=== PATIENT | male | born 1975 ===

== ENCOUNTER 2020-07-19 15:30 | Inpatient (IN) | payer SELFPAY ==
[2020-07-19] MEDS ORDERED: SODIUM CHLORIDE 0.9% 1000 ML 1,000 ML IV ONE ×3 (16:03→17:13)
[2020-07-19] MEDS ORDERED: cefTRIAXone/NS 2 GM/100 ML 2 GM/100 ML BAG IV ONE (16:10)
[2020-07-19] MEDS ORDERED: dexAMETHasone 4 MG/ML VIAL IV ONE (16:10)
[2020-07-19] MEDS ORDERED: AZITHROMYCIN 500 MG in SODIUM CHLORIDE 0.9% 250ML 250 ML IV ONE (16:10)
--- NOTE | 2020-07-19 16:10 | Emergency Department Report ---
ED Shortness of Breath HPI - General Chief Complaint: Dyspnea/Respdistress Stated Complaint: CHINMAY/HBS Time Seen by Provider: 07/19/20 16:01 Source: patient Mode of arrival: Ambulatory Limitations: Language Barrier - History of Present Illness Initial Comments: Patient is a 44-year-old male that presents emergency room with complaints of difficulty breathing, shortness of breath, dyspnea on exertion, fatigue, chills, fever. Patient states he believes he has Covid but has never been tested. Patient states his symptoms started 3 days ago. Patient dates his symptoms are worsening. Patient states he feels he cannot catch his breath. Patient denies chest pain. Patient denies nausea and vomiting. Patient denies diarrhea. Patient denies abdominal pain. Patient states his symptoms are worse. Patient states his shortness of breath is better with rest and worse with exertion. While in triage, the patient was found to have an oxygen saturation of 40%. MD Complaint: shortness of breath, cough Consistency: constant Improves With: rest Worsens With: movement, coughing, inspiration Context: recent URI Associated Symptoms: fever, cough Treatments Prior to Arrival: none - Related Data Home Oxygen Therapy: No Allergies Allergy/AdvReac Type Severity Reaction Status Date / Time No Known Allergies Allergy Unverified 07/19/20 15:54 ED Review of Systems ROS: Stated complaint: CHINMAY/HBS Other details as noted in HPI Constitutional: chills, fever, malaise Eyes: denies: eye pain, eye discharge, vision change ENT: denies: ear pain, throat pain Respiratory: see HPI, cough, shortness of breath, SOB with exertion, SOB at rest. denies: wheezing Cardiovascular: denies: chest pain, palpitations Endocrine: no symptoms reported Gastrointestinal: denies: abdominal pain, nausea, diarrhea Genitourinary: denies: urgency, dysuria Musculoskeletal: denies: back pain, joint swelling, arthralgia Skin: denies: rash, lesions Neurological: denies: headache, weakness, paresthesias Psychiatric: denies: anxiety, depression Hematological/Lymphatic: denies: easy bleeding, easy bruising ED Past Medical Hx - Past Medical History Previous Medical History?: Yes Hx Hypertension: Yes Hx Diabetes: Yes - Surgical History Past Surgical History?: No - Family History Family history: no significant - Social History Smoking Status: Never Smoker Substance Use Type: None ED Physical Exam - General Limitations: Language Barrier General appearance: alert, in distress - Head Head exam: Present: atraumatic, normocephalic - Eye Eye exam: Present: normal appearance - ENT ENT exam: Present: mucous membranes moist - Neck Neck exam: Present: normal inspection - Respiratory Respiratory exam: Present: respiratory distress, decreased breath sounds - Cardiovascular Cardiovascular Exam: Present: regular rate, normal rhythm. Absent: systolic murmur, diastolic murmur, rubs, gallop - GI/Abdominal GI/Abdominal exam: Present: soft, normal bowel sounds - Rectal Rectal exam: Present: deferred - Extremities Exam Extremities exam: Present: normal inspection - Back Exam Back exam: Present: normal inspection - Neurological Exam Neurological exam: Present: alert, oriented X3 - Psychiatric Psychiatric exam: Present: normal affect, normal mood - Skin Skin exam: Present: warm, dry, intact, normal color. Absent: rash ED Course Vital Signs 07/19/20 15:57 Pulse Rate 117 H Respiratory 32 H Rate Blood Pressure 117/76 [Right] O2 Sat by Pulse 49 L Oximetry - Reevaluation(s) Reevaluation #1: Initial evaluation done. Patient will be placed on BiPAP. Patient's oxygen saturation is severely low. I discussed intubation with patient and the patient agrees with intubation if is necessary. 07/19/20 16:08 Reevaluation #2: Patient's oxygen saturations improved. Patient states he feels little better on BiPAP. Patient's work to breathe has decreased. Patient has received ant ibiotics and fluids. 07/19/20 16:35 Reevaluation #3: Patient is still receiving fluids. Patient will be given more fluids since the patient's lactic acid is so high and has a elevated white count consistent with sepsis. Sepsis protocol initiated. Patient also found to be in DKA and patient was started on insulin drip. 07/19/20 17:13 Reevaluation #4: Patient states he is feeling better. I discussed all results with patient. I discussed plan of care with patient. Patient agrees with plan of care and admission. Patient to be admitted to the hospitalist service. 07/19/20 17:20 - Consultations Consultation #1: Hospitalist consulted for admission. Hospitalist to admit patient. 07/19/20 17:25 ED Medical Decision Making - Lab Data Result diagrams: 07/19/20 16:18 07/19/20 17:16 - Radiology Data Radiology results: report reviewed, image reviewed CHEST 1 VIEW INDICATION: Dyspnea. COMPARISON: None. FINDINGS: Support devices: None. Heart: Normal. Lungs/Pleura: There is extensive bilateral airspace disease. No pleural abnormality. IMPRESSION: 1. Extensive bilateral airspace disease. This is concerning for bilateral pneumonia, viral etiologies should be considered. - Medical Decision Making Patient is a 44-year-old male that presents emergency room with complaints of shortness of breath and difficulty breathing and fever, cough, chills. Patient's past medical history of diabetes and hypertension. Patient states he is been taking his diabetes medications. Patient found to be 40% oxygen level in triage and patient was brought immediately to acute care area and placed on B iPAP. Patient immediately improved. Patient given antibiotics immediately after initial evaluation. Patient then given fluids and Decadron. Patient has sepsis protocol initiated. Patient had a Covid protocol initiated. ID was consulted. Patient had a chest x-ray which shows bilateral pneumonia. Patient had labs done which were consistent with DKA and elevated WBC. Patient placed on a DKA, diabetic protocol to include insulin and fluids. Patient admitted to the ICU and to the hospitalist service for further evaluation and treatment. - Differential Diagnosis Covid, shortness of breath, difficulty breathing, respiratory failure, pneu Critical Care Time: Yes Critical care time in (mins) excluding proc time.: 45 Critical care attestation.: If time is entered above; I have spent that time in minutes in the direct care of this critically ill patient, excluding procedure time. Critical Care Time: 45 minutes ED Disposition Clinical Impression: SOB (shortness of breath), Respiratory distress, Person under investigation for COVID-19, Lactic acid acidosis Respiratory failure Qualifiers: Chronicity: acute Respiratory failure complication: hypoxia Qualified Code(s): J96.01 - Acute respiratory failure with hypoxia Fever Qualifiers: Fever type: unspecified Qualified Code(s): R50.9 - Fever, unspecified Sepsis Qualifiers: Sepsis type: sepsis due to unspecified organism Sepsis acute organ dysfunction status: with acute organ dysfunction Severe sepsis acute organ dysfunction type: acute respiratory failure Acute respiratory failure type: with hypoxia Severe sepsis shock status: without septic shock Qualified Code(s): A41.9 - Sepsis, unspecified organism DKA (diabetic ketoacidoses) Qualifiers: Diabetes mellitus type: type 2 Diabetes mellitus complication detail: without c mikael Qualified Code(s): E11.10 - Type 2 diabetes mellitus with ketoacidosis without coma Disposition: OP ADMIT IP TO THIS HOSP Is pt being admited?: Yes Does the pt Need Aspirin: No Condition: Critical Instructions: Diabetic Ketoacidosis (ED) Time of Disposition: 17:16
[2020-07-19 16:48] LABS: Basophils % (Auto) 0.2 % (0.0-1.8); Eosinophils % (Auto) 0.1 % (0.0-4.3); Hemoglobin 12.9 gm/dl (11.8-15.2); Lymphocytes # (Auto) 1.4 K/mm3 (1.2-5.4); Lymphocytes % (Auto) 7.4 % (13.4-35.0); Mean Corpuscular HGB Conc 33 % (32-34); Mean Corpuscular Volume 81 fl (84-94); Monocytes # (Auto) 1.4 K/mm3 (0.0-0.8); Monocytes % (Auto) 7.5 % (0.0-7.3); Platelet Count 449 K/mm3 (140-440); Red Blood Count 4.82 M/mm3 (3.65-5.03); Red Cell Distribution Width 12.4 % (13.2-15.2)
[2020-07-19 16:56] LABS: Creatine Kinase MB 1.1 ng/mL (0.0-4.0)
[2020-07-19 16:57] LABS: Alanine Aminotransferase 19 units/L (7-56); Albumin 2.5 g/dL (3.9-5); BUN/Creatinine Ratio 12; Blood Urea Nitrogen 11 mg/dL (9-20); Calcium 8.2 mg/dL (8.4-10.2); Hemolysis Index 16
--- NOTE | 2020-07-19 17:01 | XRay Report ---
CHEST 1 VIEW INDICATION: Dyspnea. COMPARISON: None. FINDINGS: Support devices: None. Heart: Normal. Lungs/Pleura: There is extensive bilateral airspace disease. No pleural abnormality. IMPRESSION: 1. Extensive bilateral airspace disease. This is concerning for bilateral pneumonia, viral etiologies should be considered. Signer Name: Dario Vaughn MD Signed: 07/19/2020 4:56 PM Workstation Name: [id number]
[2020-07-19] MEDS ORDERED: DEXTROSE 50% IN WATER (25GM) 50 ML SYRINGE IV PRN (17:10)
[2020-07-19] MEDS ORDERED: ACETAMINOPHEN 325 MG TAB PO PRN (17:30)
[2020-07-19] MEDS ORDERED: HYDROmorphone 1 MG/1 ML INJ IV PRN (17:30)
[2020-07-19] MEDS ORDERED: SODIUM CHLORIDE 0.9% 500 ML 1,000 ML IV ONE (17:30)
--- NOTE | 2020-07-19 17:30 | History and Physical Report ---
History of Present Illness Chief complaint: I cant breathe History of present illness: 44 YO Male with HTN, DM presents to ED for evaluation. Pt states that he has experienced shortness of breath over the past 3 days with worsening symptoms over the past 1 day. Patient knowledges dyspnea on exertion, dyspnea at rest, decreased exercise tolerance, fatigue, malaise, body aches, and generalized weakness. Patient transported to [facility] via private vehicle for further care and evaluation. Patient seen and evaluated in the emergency department. All lab and imaging studies reviewed. Patient found to have a pulse oximetry of 40% on room air and was immediately placed on supplemental oxygen without significant improvement in symptoms and was subsequently placed on noninvasive positive pressure ventilation with improvement in symptoms. Patient found to have acute hypoxemic respiratory failure, diabetic ketoacidosis, pneumonia complicated by sepsis, as well as metabolic acidosis. Patient admitted to ICU and initiated on sepsis, coronavirus, as well as DKA protocols. Patient denies fever, chills, chest pain, palpitations, skin rash, recent ill contact. Patient is uncertain of exposure to coronavirus. No prior admission for review. No medication listed at time of admission for reconciliation. Past History Past Medical History: diabetes, hypertension Past Surgical History: No surgical history, Other (Reviewed) Social history: . denies: smoking, alcohol abuse, prescription drug abuse Family history: diabetes, hypertension Medications and Allergies Allergies Allergy/AdvReac Type Severity Reaction Status Date / Time No Known Allergies Allergy Unverified 07/19/20 15:54 Active Meds: Active Medications Dextrose (Dextrose 50% In Water (25gm) 50 Ml Syringe) 50 ml IV Q30MIN PRN; Protocol PRN Reason: Hypoglycemia Insulin Human Regular 100 (units/ Sodium Chloride) 100 mls @ 1 mls/hr IV TITR ELMER; Protocol Sodium Chloride (Nacl 0.9% 1000 Ml) 1,000 mls @ 999 mls/hr IV BOLUS ONE Stop: 07/19/20 18:10 Last Admin: 07/19/20 17:29 Dose: 999 mls/hr Documented by: Potassium Chloride/Dextrose/Sod Cl (D5w/0.45% Nacl/Kcl 20 Meq) 20 meq in 1,000 mls @ 125 mls/hr IV DIRECT ELMER Sodium Chloride (Nacl 0.9% 1000 Ml) 1,000 mls @ 999 mls/hr IV BOLUS ONE Stop: 07/19/20 18:13 Last Admin: 07/19/20 17:29 Dose: 999 mls/hr Documented by: Review of Systems Constitutional: weakness, malaise, lethargy, no fever, no chills Ears, nose, mouth and throat: no ear pain, no ear discharge, no tinnitis, no decreased hearing, no nose pain Cardiovascular: no chest pain, no orthopnea, no palpitations Respiratory: cough, shortness of breath, dyspnea on exertion Gastrointestinal: no nausea, no vomiting, no diarrhea, no constipation Genitourinary Male: no hematuria, no flank pain, no discharge, no urinary frequency, no urinary hesitancy Rectal: no pain, no incontinence, no bleeding Musculoskeletal: no neck stiffness, no neck pain, no shooting arm pain, no arm numbness/tingling, no low back pain Integumentary: no rash, no pruritis, no redness, no sores, no wounds Neurological: no paralysis, no weakness, no parathesias, no numbness, no tin gling Psychiatric: no anxiety, no memory loss, no change in sleep habits, no sleep disturbances, no insomnia, no hypersomnia, no change in appetite Endocrine: no cold intolerance, no heat intolerance, no excessive thirst, no polydipsia, no polyuria, no nocturia Hematologic/Lymphatic: no easy bruising, no easy bleeding, no lymphedema Allergic/Immunologic: no urticaria, no allergic rhinitis, no persistent infections Exam - Constitutional Vitals: Temp Pulse Resp BP Pulse Ox 117 H 32 H 117/76 49 L 07/19/20 15:57 07/19/20 15:57 07/19/20 15:57 07/19/20 15:57 General appearance: Present: severe distress - EENT Eyes: Present: PERRL ENT: hearing intact, clear oral mucosa - Neck Neck: Present: supple, normal ROM - Respiratory Respiratory effort: labored, pursed lips, accessory muscle use, stridor Respiratory: bilateral: diminished, rhonchi - Cardiovascular Rhythm: other (Tachycardia) Heart Sounds: Present: S1 & S2. Absent: rub, click - Extremities Extremities: pulses symmetrical, No edema Peripheral Pulses: abnormal (Capillary refill greater than 3.5 seconds) - Abdominal General gastrointestinal: Present: soft, non-tender, non-distended, normal bowel sounds Male genitourinary: Present: normal - Integumentary Integumentary: Present: dry, clammy, decreased turgor - Musculoskeletal Musculoskeletal: generalized weakness - Psychiatric Psychiatric: appropriate mood/affect, intact judgment & insight - Neurologic Neurologic: CNII-XII intact, moves all extremities HEART Score - HEART Score Troponin: Troponin T < 0.010 ng/mL (0.00-0.029) 07/19/20 16:18 Results - Labs CBC & Chem 7: 07/19/20 16:18 07/19/20 17:16 Labs: Abnormal lab results 07/19/20 07/19/20 07/19/20 Range/Units 16:18 16:18 16:18 WBC 18.5 H (4.5-11.0) K/mm3 MCV 81 L (84-94) fl MCH 27 L (28-32) pg RDW 12.4 L (13.2-15.2) % Plt Count 449 H (140-440) K/mm3 Lymph % (Auto) 7.4 L (13.4-35.0) % [place] % (Auto) 7.5 H (0.0-7.3) % [place] # (Auto) 1.4 H (0.0-0.8) K/mm3 Seg Neutrophils % 84.8 H (40.0-70.0) % Seg Neutrophils # 15.7 H (1.8-7.7) K/mm3 Sodium 128 L (137-145) mmol/L Chloride 88.9 L (98-107) mmol/L Carbon Dioxide 18 L (22-30) mmol/L Glucose 471 H (75-100) mg/dL Lactic Acid 5.40 H* (0.7-2.0) mmol/L Calcium 8.2 L (8.4-10.2) mg/dL Total Creatine Kinase (55-170) units/L Total Protein 6.1 L (6.3-8.2) g/dL Albumin 2.5 L (3.9-5) g/dL 07/19/20 Range/Units 16:18 WBC (4.5-11.0) K/mm3 MCV (84-94) fl MCH (28-32) pg RDW (13.2-15.2) % Plt Count (140-440) K/mm3 Lymph % (Auto) (13.4-35.0) % [place] % (Auto) (0.0-7.3) % [place] # (Auto) (0.0-0.8) K/mm3 Seg Neutrophils % (40.0-70.0) % Seg Neutrophils # (1.8-7.7) K/mm3 Sodium (137-145) mmol/L Chloride (98-107) mmol/L Carbon Dioxide (22-30) mmol/L Glucose (75-100) mg/dL Lactic Acid (0.7-2.0) mmol/L Calcium (8.4-10.2) mg/dL Total Creatine Kinase 40 L (55-170) units/L Total Protein (6.3-8.2) g/dL Albumin (3.9-5) g/dL Assessment and Plan - Patient Problems (1) Sepsis Current Visit: Yes Status: Acute Qualifiers: Sepsis type: sepsis due to unspecified organism Sepsis acute organ dysfunction status: with acute organ dysfunction Severe sepsis acute organ dysfunction type: acute respiratory failure Acute respiratory failure type: with hypoxia Severe sepsis shock status: without septic shock Qualified Code(s): A41.9 - Sepsis, unspecified organism; R65.20 - Severe sepsis without septic shock; J96.01 - Acute respiratory failure with hypoxia Plan to address problem: Sepsis protocol: Chest x-ray, CBC, CMP, urinalysis, blood cultures, IV antibiotic therapy, monitor urine output every shift, serial lactic acid level, maintain mean arterial pressure greater than or equal to 65, critical care team consulted The high probability of a clinically significant, sudden or life threatening deterioration of the [pulmonary, neuro, renal, infectious disease] system(s) required my full and direct attention, intervention and personal management. The aggregate critical care time was [65] minutes. This time is in addition to time spent performing reported procedures but includes the following: [x] Data Review and interpretation [x] Patient assessment and monitoring of vital signs [x] Documentation [x] Medication orders and management (2) Acute hypoxemic respiratory failure Current Visit: Yes Status: Acute Plan to address problem: Chest x-ray, supplemental oxygen, pulse oximetry, nebulizer therapy, noninvasive positive pressure ventilation due to failed supplemental oxygen via nasal cannula, prone positioning while in bed (3) DKA (diabetic ketoacidoses) Current Visit: Yes Status: Acute Qualifiers: Diabetes mellitus type: type 1 Diabetes mellitus complication detail: without coma Qualified Code(s): E10.10 - Type 1 diabetes mellitus with ketoacidosis without coma Plan to address problem: DKA protocol: IV fluid resuscitation therapy, serial BMP, monitor anion gap, insulin drip, potassium supplementation as per protocol, IV fluid resuscitation therapy as clinically indicated. (4) Lactic acid acidosis Current Visit: Yes Status: Acute Plan to address problem: Treat sepsis, IV fluid resuscitation therapy as clinically indicated, serial lactic acid level. (5) Person under investigation for COVID-19 Current Visit: Yes Status: Acute Plan to address problem: Coronavirus protocol: Supplemental oxygen, pulse oximetry, nebulizer therapy, c ontact precautions, isolation precautions, IV antibiotic therapy, IV steroid therapy, prone positioning while in bed, pulmonary toilet. (6) DVT prophylaxis Current Visit: Yes Status: Acute Plan to address problem: SCD to bilateral lower extremities while in bed, prophylactic anticoagulation.
[2020-07-19 17:43] LABS: C-Reactive Protein 27.8 mg/dL (0.00-1.30)
[2020-07-19 17:45] LABS: BUN/Creatinine Ratio 13; Blood Urea Nitrogen 12 mg/dL (9-20); Hemolysis Index 9
[2020-07-19] MEDS ORDERED: INSULIN REGULAR, HUMAN 100 UNITS in SODIUM CHLORIDE 0.9% 99 ML IV SCH (18:00)
[2020-07-19] MEDS ORDERED: methylPREDNISolone Sod Succinate 40 MG/1 ML INJ IV SCH (18:00)
[2020-07-19] MEDS ORDERED: D5W/0.45% NACL/KCL 20 MEQ 20 MEQ/1,000 ML BAG IV SCH (18:00)
[2020-07-19] MEDS ORDERED: SODIUM BICARB 8.4% 50 MEQ/50 ML SYRINGE IV ONE ×3 (18:35→21:20)
[2020-07-19 19:52] LABS: BUN/Creatinine Ratio 13; Blood Urea Nitrogen 12 mg/dL (9-20); Calcium 7.2 mg/dL (8.4-10.2); Hemolysis Index 5
[2020-07-19 20:46] VITALS: BP 116/85
[2020-07-19] MEDS ORDERED: SODIUM CHLORIDE 0.9% 500 ML 500 ML ONE (20:50)
[2020-07-19] MEDS ORDERED: EPINEPHrine 1 MG/10 ML SYRINGE ONE (21:20)
[2020-07-19] MEDS ORDERED: NORepinephrine/NS 4 MG-250 ML 4 MG/250 ML BAG IV ONE (21:44)
[2020-07-19] MEDS ORDERED: SODIUM CHLORIDE 0.9% 1000 ML 2,000 ML ONE (21:56)
[2020-07-19] MEDS ORDERED: EPINEPHrine 1 MG/1 ML 8 MG in SODIUM CHLORIDE 0.9% 250ML 242 ML IV SCH (22:00)
[2020-07-19] MEDS ORDERED: ENOXAPARIN 40 MG/0.4 ML INJ SUB-Q SCH (22:00)
[2020-07-19 22:13] LABS: BUN/Creatinine Ratio 14; Blood Urea Nitrogen 14 mg/dL (9-20); Calcium 7.5 mg/dL (8.4-10.2); Hemolysis Index 64
--- NOTE | 2020-07-19 22:18 | Event Note ---
Date: 07/19/20 The patient was evaluated in the emergency department for symptoms described in the history of present illness. He/she was evaluated in the context of the global COVID-19 pandemic, which necessitated consideration that the patient might be at risk for infection with the virus that causes COVID-19. Institutional protocols and algorithms that pertain to the evaluation of patients at risk for COVID-19 are in a state of rapid change based on information released by regulatory bodies including the CDC and federal and state organizations. These policies and algorithms were followed during the patient's care in the emergency department. Please note that these policies, procedures and recommendations changed on a rapid basis. I had on full personal protective equipment during this patient encounter. I responded to [employer] called overhead, in the IMCU holding area. I arrived and found the patient to be receiving active CPR, and receiving [id number] ventilation from respiratory therapy. Hospital physician, Dr. Mo Pederson, Is directing patient's medical resuscitation. ER assistance is requested for definitive airway management. Patient emergently administratively consented by myself and the aforementioned hospital physician for definitive airway management And IO placement. With maximum barrier precautions, video laryngoscopy is performed with a curved S4 blade, and a 7.5 endotracheal tube is easily inserted into the trachea, under direct visualization. End-tidal capnography demonstrates appropriate color change, and condensation is noted on the endotracheal tube. Viral filter is then attached to the end of the tube, and ventilation/oxygenation is continued through [id number] ventilation, patient continues to receive CPR. Then, left lower extremity proximal tibia is identified, and cleansed with alcohol swab in typical aseptic fashion. A 15 mm 25-gauge IO needle/line is placed using anatomic landmark guidance, with marrow being easily aspirated. This line is then secured in place. We will defer post intubation, post IO management to the inpatient hospitalist team. Recommend that I/O be changed out/removed within 24 hours for definitive central venous access, if patient requires vasopressor support.
--- NOTE | 2020-07-19 23:27 | Event Note ---
Date: 07/19/20 LEANNA SIERRA called on patient who has been on admission for acute hypoxic respiratory failure, Sepsis, DKA and PUI. Patient was said to have collapsed while in the bathroom. Resuscitative measures according to ACLS protocol was commenced. Patient was successfully intubated by ER physician. Intra osseus line also established. All resuscitative measures were however futile. Upon exam: Pupils were fixed and dilated Chest: No breath sounds Cardiovascular exam: No peripheral pulses, no heart sounds Abdomen: Distended Extremities:Cold and clammy Central nervous system: No reflexes Patient pronounced at 22:29PM on 07/19/2020 Family (sister) called and informed.
[2020-07-20] MEDS ORDERED: SODIUM BICARB 8.4% 50 MEQ/50 ML SYRINGE IV ONE (05:27)
[2020-07-20] MEDS ORDERED: EPINEPHrine 1 MG/10 ML SYRINGE ONE (05:27)
[2020-07-20] MEDS ORDERED: AZITHROMYCIN 500 MG in SODIUM CHLORIDE 0.9% 250ML 250 ML IV SCH (16:00)
[2020-07-20] MEDS ORDERED: cefTRIAXone/NS 2 GM/100 ML 2 GM/100 ML BAG IV SCH (18:00)
== END 2020-07-19 22:30 | DRG 871 ==
LOC: ED 15:30 → CC1 19:05
PROVIDERS: ADMIT Internal Medicine; ATTEND Internal Medicine
PROC: 0BH17EZ Insertion of Endotracheal Airway into Trachea, Via Natural or Artificial Opening (ICD-10-PCS; principal; 2020-07-19)
PROC: 5A1935Z Respiratory Ventilation, Less than 24 Consecutive Hours (ICD-10-PCS; 2020-07-19)
DX: A41.9 Sepsis, unspecified organism (principal); E11.10 Type 2 diabetes mellitus with ketoacidosis without coma; J96.01 Acute respiratory failure with hypoxia; J18.9 Pneumonia, unspecified organism; E87.2 Acidosis; I10 Essential (primary) hypertension; R65.20 Severe sepsis without septic shock; Z83.3 Family history of diabetes mellitus; Z82.49 Family history of ischemic heart disease and other diseases of the circulatory system; Z79.4 Long term (current) use of insulin
CPT/HCPCS: 36415; 71045; 80048; 80053; 82140; 82550; 82553; 82728; 82947; 82962; 83615; 83735; 84100; 84145; 84484; 85025; 85379; 86140; 87040; 92950; 94002; 94003; 94660; G0378; J0171; J0456; J0696; J1100; J1815; J2920; J7030; J7040; J7050